=== PATIENT | male | born 1940 | race Caucasian/White ===

== ENCOUNTER → 2016-10-25 | Outpatient (CLI) | payer OTHER ==
[~2016-10-25] MED LIST: ACETAMINOPHEN325 MG PO; ASPIRIN81 MG PO; COZAAR PO; COZAAR100 MG PO; FISH OIL300 MG PO; FLOMAX0.4 M1 PO; GREEN TEA1 CAP PO; HYDROCHLOROTH12.5 MG PO; HYDROCODON-ACE1 EAC7 PO; HYDROCODONE-APA1 T61 PO; LIPITOR40 MG PO; LOSARTAN POTAS100 MG PO; MULTI-VITAMIN1 TAB PO; PLAVIX PO; POMEGRANATE250 MG PO; PRAVASTATIN SOD40 MG PO; ROXICODONE5 MG PO; SENOKOT S1 TA1 PO; TOPROL XL PO; TUMERIC PO
--- NOTE | ~2016-10-25 | CT55 ---
[facility] A Service of [facility] RADIOLOGY TEXT RESULTS PATIENT: TRINA STILES LOCATION: [facility] : 44 UNIT #: [id number] AGE: [address]: Anthony Hein MD SEX: M ORDER DR: [id number] [facility] [address] [place], [place] [address] [id number] O MR#: [id number] [facility] #: [id number] NAME: TRINA STILES : 1940 SEX: M STUDY DATE/TIME: UNIT: [facility] ROOM: STUDY DESCRIPTION: CT Chest W Con Attending Physician: Anthony Hein M.D. Referring Physician: Anthony Hein M.D. Ordering Physician: Anthony Hein M.D. Primary Care Physician: Ilya Menon M.D. MEDICAL IMAGING REPORT This report is preliminary unless electronic signature is present EXAM CT chest with contrast 10/25/2016 1337 hours. HISTORY 76-year-old man with history of non-small cell lung carcinoma status post right lower lobectomy for observation for suspected malignant neoplasm. No reported chemo or radiation therapy in the interval. COMPARISON A PET/CT 07/17/2015, chest CT 05/05/2015 [address] recent chest CT 04/27/2016. TECHNIQUE Dynamic helical CT images were obtained from the thoracic inlet through the adrenal glands. Sagittal and coronal reconstructions were performed. Contrast was Isovue-370 70 mL IV. Total exam DLP 926 mGy-cm. This CT exam was performed with one or more of the following radiation dose reduction techniques: Automatic exposure control, adjustment of mA and/or kV according to patient size, and iterative reconstruction. FINDINGS Images through the thoracic inlet demonstrate no supraclavicular adenopathy or thyroid mass. Images through the chest demonstrate normal caliber aorta which is normally opacified. Cardiac chambers are normal. There are faint coronary calcifications. There is trace pericardial fluid or pericardial thickening which is unchanged. There is no pathologic mediastinal or hilar adenopathy. The lungs demonstrate postop change of right lower lobectomy with linear scar. There is no nodule, mass or local recurrence. There is no effusion. Limited views through the upper abdomen demonstrate no liver lesion. The [facility] A Service of [facility] RADIOLOGY TEXT RESULTS PATIENT: TRINA STILES LOCATION: [facility] : 44 UNIT #: [id number] AGE: [address]: Anthony Hein MD SEX: M ORDER DR: adrenal glands remain normal. There a few small lymph nodes at the gastrohepatic ligament and at the logan hepatis which are unchanged in size and were previously PET negative. These are therefore likely benign. There are bilateral renal cortical cysts which are stable. There appears to be a single small stone within the gallbladder, unchanged. IMPRESSION 1. Postop change right lower lobectomy with no evidence of local recurrence or metastatic disease. 2. Small lymph nodes at the gastrohepatic ligament and in the logan hepatis are unchanged in size or previously PET negative and felt to be benign. 3. Solitary gallstone in the gallbladder. 4. Stable renal cortical cysts. 5. No bone lesions seen. Dictated by... Prerna Medrano M.D. THIS IS AN ELECTRONICALLY VERIFIED REPORT Prerna Medrano M.D. at 10/27/2016 2:33 PM SHEEBA/carlos TD: 10/27/2016 14:13 JOB #: [id number] MEDICAL IMAGING REPORT Page 1 of 1 COPY
[2016-10-25 17:40] LABS: POC - CREATININE 1.09 mg/dL (0.64-1.27); POC - GFR >60.0 mL/min (>60)
== END | disposition home or self-care (01) ==
LOC: CCAT 12:11
PROVIDERS: Internal Medicine Medical Oncology
DX: Z08 Encounter for follow-up examination after completed treatment for malignant neoplasm (principal); K80.20 Calculus of gallbladder without cholecystitis without obstruction; Q61.02 Congenital multiple renal cysts; Z85.118 Personal history of other malignant neoplasm of bronchus and lung; Z90.2 Acquired absence of lung [part of]
CPT/HCPCS: 71260; 82565; Q9967